=== PATIENT | male | born 1975 | race Caucasian/White ===

== ENCOUNTER 2019-11-18 09:21 | Emergency (ER) | payer SELFPAY ==
[2019-11-18 09:52] VITALS: BP 206/124; PULSE 98; RESP 18; TEMP 36.3; O2SAT 95; BMI 47.0
--- NOTE | 2019-11-18 10:12 | ECG_ITS ---
Measurements Intervals [place] Rate: 102 P: 62 OR: 142 QRS: 14 QRSD: 105 T: 58 QT: 330 QTc: 431 SINUS TACHYCARDIA ABNORMAL RHYTHM ECG Compared to ECG 11/19/2018 06:12:24 Intraventricular conduction delay no longer present Electronically Signed On 11-18-2019 19:23:11 CDT by Joe Steward M.D. [email or web address]
--- NOTE | 2019-11-18 10:13 | XRR_ITS ---
PROCEDURE INFORMATION: Exam: XR Chest, 1 View Exam date and time: 11/18/2019 10:28 AM Age: 44 years old Clinical indication: Cough and dyspnea; Additional info: Dyspnea/cough TECHNIQUE: Imaging protocol: XR of the chest Views: 1 view. COMPARISON: CR Chest 1 [place] [id number] 11/19/2018 6:31 AM FINDINGS: Lungs: Mild platelike atelectasis versus scarring left costophrenic angle. Lungs are otherwise well aerated. Pleural space: Unremarkable. No pleural effusion. No pneumothorax. Heart/Mediastinum: Unremarkable. No cardiomegaly. Bones/joints: Unremarkable. XR/XR chest 1V portable [id number] IMPRESSION: Mild platelike atelectasis versus scarring left costophrenic angle. Lungs are otherwise well aerated.
[2019-11-18 10:25] LABS: Basophils % 0.4 %; Eosinophils # 0.1 10^3/uL (0.0-0.8); Hematocrit 46.1 % (42.0-52.0); Hemoglobin 15.3 g/dL (11.7-16.6); Lymphocytes # 2.4 10^3/uL (0.8-4.8); Lymphocytes % 24.8 %; Mean Corpuscular HGB Conc 33.2 g/dL (30.0-36.0); Mean Corpuscular Hemoglobin 30.5 pg (28.0-34.0); Mean Platelet Volume 10.8 fL (7.4-10.4); Monocytes # 0.7 10^3/uL (0.2-0.9); Monocytes % 7.4 %; Neutrophils # 6.3 10^3/uL (1.8-7.7); Neutrophils % 66.1 %; Nucleated Red Blood Cells % 0 %; Platelet Count 221 10^3/cmm (130-400); Red Blood Count 5.01 10^6/uL (4.1-5.3); Red Cell Distribution Width 12.2 % (12.1-15.1); White Blood Count 9.5 10^3/uL (4.0-10.0)
[2019-11-18 10:39] LABS: Alanine Aminotransferase 41 U/L (0-41); Albumin Level 4.1 g/dL (3.5-5.2); Alkaline Phosphatase 93 IU/L (40-130); Anion Gap 11.1 (5-19); Aspartate Amino Transferase 32 U/L (0-40); Blood Urea Nitrogen 11 mg/dL (6-20); Calcium 9.7 mg/dL (8.5-10.5); Carbon Dioxide 32 mmol/L (22-29); Chloride 100 mmol/L (98-107); Globulin 3.6 g/dL (1.3-4.6); Glomerular Filtration Rate 80.4 mL/min (90-130); Glucose 321 mg/dL (65-115); Osmolality Calculated 296 mOsm/kg (285-295); Potassium 4.1 mmol/L (3.5-5.1); Sodium 139 mmol/L (136-145); Total Bilirubin 0.7 mg/dL (0.15-1.2); Total Protein 7.7 g/dL (6.6-8.7)
[2019-11-18 10:44] LABS: ABG PCO2 40.6 mmHg (35-45); ABG PH Result 7.43 (7.35-7.45); Alveolar-Arterial Oxygen Gradi 30.3 mmHg (5-10); Arterial Blood Gas Hematocrit 48.8 % (42-52); Base Excess ABG 2.7 mmol/L (-2.0-2.0); Blood Gas Allen Test Pos; Blood Gas Sample Site Radial, left; Blood Gas Sample Type Arterial; Carboxyhemoglobin 0.8 %THgb (0.4-20.1); HCO3 ABG 27.2 mmol/L (22-26); HGB O2 Sat 94.5 % (95-100); Ionized Calcium Level - ABG 1.2 mmol/L (1.1-1.4); Methemoglobin 0.1 % (0.4-1.5); Oxygen Device ROOM AIR; Oxygen Saturation ABG 95.3; PO2 ABG 68.9 mmHg (80.0-100.0); Potassium Level - ABG 3.9 mmol/L (3.5-5.0); Total Hemoglobin 15.9 g/dL (14-18)
--- NOTE | 2019-11-18 10:49 | ED_ITS ---
Entered by Tiffani Torres, acting as scribe for Ulises Burnham DO HPI - Extremity Problem General: Chief complaint: Extremity Problem,Nontraumatic Stated complaint: poss blood clots Time Seen by Provider: 11/18/19 09:52 Source: patient and family Mode of arrival: ambulatory Limitations: no limitations History of Present Illness: HPI Narrative: 44 yo male presents with L leg pain and swelling. pt states this started over the last few days. pt was seen by pcp, sent to ED for possible blood clot. pt has had a cough. pt denies any other symptoms at this time. MD Complaint: extremity pain and extremity swelling Onset (ago): day(s) Pain Consistency: constant Location: left Quality: sharp and constant Radiation: none Relieving factors: nothing Exacerbating factors: walking Associated symptoms: Reports no associated symptoms; Deny chest pain, fever(s) or rash Review of Systems General: Reports: 10 or more systems reviewed and unremarkable except in HPI and below Const: Denies: fever, chills, body aches, change in appetite, fatigue or malaise ENMT: Denies: throat pain, ear pain, nasal discharge or nasal congestion Card: Denies: chest pain, edema, shortness of breath on exertion or shortness of breath when lying down Resp: Denies: shortness of breath, productive cough or non-productive cough GI: Denies: abdominal pain, nausea, vomiting, vomiting blood, coffee grounds in vomit, diarrhea, constipation, bloating, blood in stool or black tarry stool : Denies: flank pain, painful urination, urinary frequency or urinary urgency Skin/Breast: Denies: rash or itching [facility] ED PFSH: Social History Smoking and tobacco status: never smoked Physical Exam Const: COMMON NORMALS: no apparent distress GENERAL APPEARANCE: cooperative and comfortable ORIENTATION/CONSCIOUSNESS: Yes awake, Yes oriented to person, Yes oriented to place and Yes oriented to time HENMT: COMMON NORMALS: normocephalic, head/scalp atraumatic, hearing grossly normal bilaterally, external ears normal, EAC's normal, TM's normal bilaterally, nasal mucous membranes and turbinates normal, moist oral mucous membranes and oropharynx normal HEAD & SCALP: normocephalic and atraumatic NOSE: nasal mucous membranes and turbinates normal EXTERNAL EAR: Yes external ears normal EXTERNAL AUDITORY CANAL: EAC's normal TYMPANIC MEMBRANE: TM's normal bilaterally Eye: COMMON NORMALS: PERRL, EOMs intact bilaterally, conjunctivae normal and no scleral icterus CONJUNCTIVA: Yes conjunctivae normal PUPIL: Yes PERRL Neck/C-Spine: COMMON NORMALS: full ROM, no lymphadenopathy, supple and no JVD Lymph: LYMPHATIC: no lymphadenopathy noted and no lymphedema noted Resp: COMMON NORMALS: normal respiratory effort, no retractions, no use of accessory muscles and clear to auscultation bilaterally AUSCULTATION: clear to auscultation bilaterally Cardio: COMMON NORMALS: no JVD, regular rate, regular rhythm and no murmurs RATE: regular rate RHYTHM: regular rhythm GI: COMMON NORMALS: soft to palpation and no hepatosplenomegaly AUSCULTATION: Yes normoactive bowel sounds PALPATION: Yes soft, No tender, No guarding and Yes no hepatosplenomegaly Extremity: LEFT LOWER EXTREMITY: Yes lower leg (Left lower leg swelling) Left lower leg: Yes special tests Left lower leg special tests: Rita's sign: Positive Neuro: SENSORIUM/ORIENTATION: Yes oriented to person, Yes oriented to place and Yes oriented to time Skin: COMMON NORMALS: no rashes or lesions noted GENERAL SKIN EXAM: no rashes or lesions noted Course 2 Vital Signs: Vital signs: Vital Signs Temperature 97.4 F L 11/18/19 09:52 Pulse Rate 18 L 11/18/19 13:12 Respiratory Rate 105 H 11/18/19 13:12 Blood Pressure 184/104 11/18/19 13:12 Pulse Oximetry 97 11/18/19 13:12 MDM - Extremity (Nontraumatic) MDM Narrative: Medical decision making narrative: Patient has a left leg DVT which is quite extensive as well as a multiple small pulmonary emboli. Given Lovenox we will start him on Eliquis follow-up with his primary care doctor advised he will need to continue on the Eliquis until he specifically taken off of it by his primary doctor. Lab Data: Labs: Lab Results 11/18/19 11/18/19 11/18/19 Range/Units 10:20 10:20 10:31 WBC 9.5 (4.0-10.0) 10^3/ uL RBC 5.01 (4.1-5.3) 10^6/u L Hgb 15.3 (11.7-16.6) g/dL Hct 46.1 (42.0-52.0) % MCV 92.0 (80-94) fL MCH 30.5 (28.0-34.0) pg MCHC 33.2 (30.0-36.0) g/dL RDW 12.2 (12.1-15.1) % Plt Count 221 (130-400) 10^3/c mm MPV 10.8 H (7.4-10.4) fL Neut % (Auto) 66.1 % Lymph % (Auto) 24.8 % Howell % (Auto) 7.4 % Eos % (Auto) 1.0 % Baso % (Auto) 0.4 % Neut # (Auto) 6.3 (1.8-7.7) 10^3/u L Lymph # (Auto) 2.4 (0.8-4.8) 10^3/u L Howell # (Auto) 0.7 (0.2-0.9) 10^3/u L Eos # (Auto) 0.1 (0.0-0.8) 10^3/u L Baso # (Auto) 0.0 (0.0-0.1) 10^3/u L Nucleated RBC % (a uto) 0 % Nucleated RBCs # 0.0 /100WBC Specimen Type Arterial Sample Site Radial, left ABG pH 7.43 (7.35-7.45) ABG pCO2 40.6 (35-45) mmHg ABG pO2 68.9 L (80.0-100.0) mmH g ABG HCO3 27.2 H (22-26) mmol/L ABG O2 Saturation 95.3 ABG Base Excess 2.7 H (-2.0-2.0) mmol/ L Patel Test Pos A-a O2 Gradient 30.3 H (5-10) mmHg Hematocrit 48.8 (42-52) % Hgb O2 Saturation 94.5 L (95-100) % Carboxyhemoglobin 0.8 (0.4-20.1) %THgb Methemoglobin 0.1 L (0.4-1.5) % Total Hemoglobin 15.9 (14-18) g/dL Ionized Calcium 1.2 (1.1-1.4) mmol/L O2 Delivery Device Room air Case Mgr ID monro Sodium 139 142.0 (136-145) mmol/L Potassium 4.1 3.9 (3.5-5.1) mmol/L Chloride 100 (98-107) mmol/L Carbon Dioxide 32 H (22-29) mmol/L Anion Gap 11.1 (5-19) BUN 11 (6-20) mg/dL Creatinine 1.0 (0.7-1.2) mg/dL GFR Calculation 80.4 L (90-130) mL/min Glucose 321 H 280.0 H (65-115) mg/dL Calculated Osmolal ity 296 H (285-295) mOsm/k g Calcium 9.7 (8.5-10.5) mg/dL Total Bilirubin 0.7 (0.15-1.2) mg/dL AST 32 (0-40) U/L ALT 41 (0-41) U/L Alkaline Phosphata se 93 (40-130) IU/L Total Protein 7.7 (6.6-8.7) g/dL Albumin 4.1 (3.5-5.2) g/dL Globulin 3.6 (1.3-4.6) g/dL Imaging Data^: CTA Chest: Radiologist's impression: [place] [address] CT Scan Report Signed Patient: Robbie Lanier #: [id number] : 1975Acct#:[id number] Age/Sex: 44 / MADM Date: 11/18/19 Loc: [facility]/Bed: Attending Dr: Ordering Provider/Ordering MD: Ulises Burnham DO Date of Service: 11/18/19 Procedure(s): CT angio chest PE protcl [id number] Accession Number(s): [id number] Report Number: [id number] WS: [id number] CTA OF THE CHEST WITH PULMONARY EMBOLISM PROTOCOL TECHNIQUE: High-resolution contrast enhanced CTA of the chest with coronal and sagittal reformatted images with pulmonary embolism protocol. MIP images are also reviewed. CLINICAL INFORMATION: DVT COMPARISON: None. DLP: 1014.[address] scans at [facility] use at least one of these dose o ptimization techniques: automated exposure control; mA and/or kV adjustment per patient size (includes targeted exams where dose is matched to clinical indication); or iterative reconstruction. FINDINGS: Proximal main pulmonary arteries are normal. Multiple small filling defects in the right upper lobe and right lower lobe segmental and subsegmental pulmonary arteries consistent with acute pulmonary embolus. Proximal main pulmonary arteries are patent. A few additional filling defects in the left lower lobe segmental and subsegmental pulmonary arteries. Normal caliber thoracic aorta. Normal descending thoracic aorta. No acute pulmonary infiltrates. Calcified granuloma left lower lobe. Bilateral thyroid nodules larger on the right measuring 2.7 CM. This can be followed up with ultrasound on an elective basis. Enlarged right hilar lymph nodes measuring up to 2.0 cm. This is nonspecific. A few prominent anterior mediastinal lymph nodes not pathologically enlarged and may be reactive. Adrenal glands are normal. Small esophageal hiatal hernia. Mild thoracic curve. Hypertrophic changes lower thoracic spine. Thoracic curve convex right. Notified Ulises Burnham DO at 11/18/2019 12:[address]/CT angio chest PE protcl [id number] IMPRESSION: 1. Acute pulmonary embolus with filling defects involving the right upper and right lower lobe segmental and subsegmental pulmonary arteries. Additional filling defects involving the left lower lobe consistent pulmonary embolus. 2. No acute pulmonary infiltrates. 3. Enlarged right hilar lymph nodes measuring up to 2.0 cm may be inflammatory but nonspecific 4. Bilateral thyroid nodules. This can be followed up with ultrasound on an elective basis. Dictated By:Oswaldo Paulino MD Signed By:Oswaldo Paulino MDSigned Date/Time:11/18/19 1238 CXR: Radiologist's impression: [address] [address] XRay Report Signed Patient: Robbie Lanier #: [id number] : 1975Acct#:[id number] Age/Sex: 44 / MADM Date: 11/18/19 Loc: [facility]/Bed: Attending Dr: Ordering Provider/Ordering MD: Ulises Burnham DO Date of Service: 11/18/19 Procedure(s): XR chest 1V portable [id number] Accession Number(s): [id number] Report Number: [id number] PROCEDURE INFORMATION: Exam: XR Chest, 1 View Exam date and time: 11/18/2019 10:28 AM Age: 44 years old Clinical indication: Cough and dyspnea; Additional info: Dyspnea/cough TECHNIQUE: Imaging protocol: XR of the chest Views: 1 view. COMPARISON: CR Chest 1 [place] [id number] 11/19/2018 6:31 AM FINDINGS: Lungs: Mild platelike atelectasis versus scarring left costophrenic angle. Lungs are otherwise well aerated. Pleural space: Unremarkable. No pleural effusion. No pneumothorax. Heart/Mediastinum: Unremarkable. No cardiomegaly. Bones/joints: Unremarkable. XR/XR chest 1V portable [id number] IMPRESSION: Mild platelike atelectasis versus scarring left costophrenic angle. Lungs are otherwise well aerated. Dictated By:Stephen Arshad MD Signed By:Stephen Arshadigned Date/Time:11/18/19 1100 Discharge Plan Discharge Patient Disposition: Home, Self-Care Clinical Impression: Deep vein thrombosis of lower extremity, Pulmonary embolism Condition: Stable Prescriptions: New Eliquis DVT-PE Treat 30D Start 5 mg (74 tabs) tablets,dose pack See Rx Instructions .ROUTE .COMPLEX Qty: 74 RF: 0 Discharge Orders: Discharge Order (Routine); Ordered 11/18/19 Ordered By: Ulises Burnham Other Ambulatory Orders: DME: Oxygen (Order) Location: None Selected Ordered By: Ulises Burnham Discharge Diet: Usual diet Discharge Activity: Resume usual activity Patient Instructions: Deep Venous Thrombosis (ED), Pulmonary Embolism Discharge Date/Time: 11/18/19 13:13 Coding Level of Care Code ED [employer] for Chg Fwd Exam Comprehensive The documentation recorded by the Brian horan Bridget Annette, accurately reflects the service I personally performed and the decisions made by [place] Curtis L, DO Nov 18, 2019 09:21
--- NOTE | 2019-11-18 11:25 | USCV_ITS ---
Ryan Lanier Age: 44 Gender: M : 1975 Exam Date: 11/18/2019 11:44 Ordering Phys: Ulises Burnham DO Technologist: Jessie Herrera Exam Location: [facility] Indication: LLE pain/swelling, positive Homans HISTORY: LLE pain, swelling X 3 weeks PROCEDURES: On the left side, the common femoral, superficial femoral, profunda femoral, popliteal, posterior tibial, greater saphenous veins, and the peroneal trunk were identified and interrogated in the standard fashion. FINDINGS: Thrombus is seen in left CFV, FV, Profunda, popliteal and peroneal veins. Minimal flow seen in left CFV. No flow found in Profunda, FV, popliteal and peroneal veins. Left GSV upper and lower and PTV appear to be free of thrombus. Right CFV, Profunda and GSV were also evaluated and appear to be free of thrombus. CONCLUSIONS DVT left CFV, FV, Profunda, popliteal and peroneal veins. Minimal flow left CFV. No flow Profunda, Femoral vein , popliteal and peroneal veins. Left GSV is patent Prelim to Dr Burnham at time of exam Oswaldo Paulino MD (Electronically Signed) Final Date: 18 November 2019 17:12 S
--- NOTE | 2019-11-18 12:00 | CT_ITS ---
WS: [id number] CTA OF THE CHEST WITH PULMONARY EMBOLISM PROTOCOL TECHNIQUE: High-resolution contrast enhanced CTA of the chest with coronal and sagittal reformatted i mages with pulmonary embolism protocol. MIP images are also reviewed. CLINICAL INFORMATION: DVT COMPARISON: None. DLP: 1014.[address] scans at [facility] use at least one of these dose optimization techniques: automat ed exposure control; mA and/or kV adjustment per patient size (includes targeted exams where dose is matched to clinical indication); or iterative reconstruction. FINDINGS: Proximal main pulmonary arteries are normal. Multiple small filling defects in the right upper lobe a nd right lower lobe segmental and subsegmental pulmonary arteries consistent with acute pulmonary emb olus. Proximal main pulmonary arteries are patent. A few additional filling defects in the left lower lobe segmental and subsegmental pulmonary arteries. Normal caliber thoracic aorta. Normal descending thoracic aorta. No acute pulmonary infiltrates. Calc ified granuloma left lower lobe. Bilateral thyroid nodules larger on the right measuring 2.7 CM. This can be followed up with ultrasound on an elective basis. Enlarged right hilar lymph nodes measuring up to 2.0 cm. This is nonspecific. A few prominent anterior mediastinal lymph nodes not pathologicall y enlarged and may be reactive. Adrenal glands are normal. Small esophageal hiatal hernia. Mild thoracic curve. Hypertrophic changes lower thoracic spine. Thoracic curve convex right. Notified Ulises Burnham DO at 11/18/2019 12:[address]/CT angio chest PE protcl [id number] IMPRESSION: 1. Acute pulmonary embolus with filling defects involving the right upper and right lower lobe segmental and subsegmental pulmonary arteries. Additional fill ing defects involving the left lower lobe consistent pulmonary embolus. 2. No acute pulmonary infiltrates. 3. Enlarged right hilar lymph nodes measuring up to 2.0 cm may be inflammatory but nonspecific 4. Bilateral thyroid nodules. This can be followed up with ultrasound on an el ective basis.
[2019-11-18] MEDS: iohexol 350 mg/mL 100 mL Btl IV (12:22)
[2019-11-18] MEDS: enoxaparin 120 mg/0.8 mL Syringe SUBCUT (12:49)
[2019-11-18 13:12] VITALS: BP 184/104; PULSE 18; RESP 105; O2SAT 97
== END 2019-11-18 13:13 | disposition home or self-care (01) ==
PROVIDERS: Emergency Provider Family Medicine; Family Provider Electrodiagnostic Medicine; PCP Electrodiagnostic Medicine
DX: I82.412 Acute embolism and thrombosis of left femoral vein (principal); I82.432 Acute embolism and thrombosis of left popliteal vein; I82.452 Acute embolism and thrombosis of left peroneal vein; I26.99 Other pulmonary embolism without acute cor pulmonale
CPT/HCPCS: 12345; 36415; 36600; 71045; 71275; 80051; 80053; 82810; 83986; 85025; 93005; 93971; 96372; 99282; 99284; J1650; Q9967

== ENCOUNTER 2019-12-02 17:03 | Emergency (ER) | payer SELFPAY ==
[2019-12-02 17:05] VITALS: BP 165/126; PULSE 111; RESP 18; TEMP 36.6; O2SAT 96; BMI 46.5
--- NOTE | 2019-12-02 17:23 | ED_ITS ---
Documented by User: Ulises Burnham DO 12/04/19 17:39 HPI - Chest Pain General: Chief Complaint: Chest Pain Stated Complaint: cp Time Seen by Provider: 12/02/19 17:23 History of Present Illness: HPI narrative: 44 yo male presents with a complaint of chest discomfort. He recently had a pulmonary emboli approximately 3 weeks ago he still taking his Eliquis. Chest discomfort is been present since that time. He is not had any fever is not had any hemoptysis. There is no radiation of the pain. Associated symptoms: Deny abdominal pain, dyspnea, fever(s), nausea or vomiting Review of Systems Const: Denies: fever, chills, body aches, change in appetite, fatigue or m alaise ENMT: Denies: throat pain, ear pain, nasal discharge or nasal congestion Card: Reports: chest pain and shortness of breath on exertion; Denies: edema or shortness of breath when lying down Resp: Denies: shortness of breath, productive cough or non-productive cough GI: Denies: abdominal pain, nausea, vomiting, vomiting blood, coffee grounds in vomit, diarrhea, constipation, bloating, blood in stool or black tarry stool : Denies: flank pain, painful urination, urinary frequency or urinary urgency Skin/Breast: Denies: rash or itching PFSH ED PFSH: Medical History DVT (deep venous thrombosis) Essential hypertension Pulmonary embolism Type 2 diabetes mellitus, without long-term current use of insulin Surgical History No pertinent past surgical history Family History Other CAD (coronary artery disease) Cancer Social History Smoking and tobacco status: never smoked Alcohol intake: never Physical Exam Extremity: OTHER: Mild persistent edema of the right lower leg Course Vital Signs: Vital signs: Vital Signs Temperature 97.8 F 12/02/19 17:05 Pulse Rate 99 12/02/19 19:05 Respiratory Rate 18 12/02/19 19:05 Blood Pressure 182/96 12/02/19 19:05 Pulse Oximetry 97 12/02/19 19:05 MDM - Chest Pain MDM Narrative: Medical decision making narrative: Troponins pending care turned over to Dr. West at change of shift Lab Data: Labs: Lab Results 12/02/19 12/02/19 Range/Units 17:45 17:45 WBC 11.2 H (4.0-10.0) 10^3/ uL RBC 5.31 H (4.1-5.3) 10^6/u L Hgb 15.6 (11.7-16.6) g/dL Hct 49.3 (42.0-52.0) % MCV 92.8 (80-94) fL MCH 29.4 (28.0-34.0) pg MCHC 31.6 (30.0-36.0) g/dL RDW 11.9 L (12.1-15.1) % Plt Count 360 (130-400) 10^3/c mm MPV 11.2 H (7.4-10.4) fL Neut % (Auto) 56.6 % Lymph % (Auto) 36.0 % [place] % (Auto) 5.6 % Eos % (Auto) 0.8 % Baso % (Auto) 0.5 % Neut # (Auto) 6.3 (1.8-7.7) 10^3/u L Lymph # (Auto) 4.0 (0.8-4.8) 10^3/u L [place] # (Auto) 0.6 (0.2-0.9) 10^3/u L Eos # (Auto) 0.1 (0.0-0.8) 10^3/u L Baso # (Auto) 0.1 (0.0-0.1) 10^3/u L Nucleated RBC % (a uto) 0 % Nucleated RBCs # 0.0 /100WBC Sodium 141 (136-145) mmol/L Potassium 4.0 (3.5-5.1) mmol/L Chloride 99 (98-107) mmol/L Carbon Dioxide 27 (22-29) mmol/L Anion Gap 19.0 (5-19) BUN 17 (6-20) mg/dL Creatinine 1.3 H (0.7-1.2) mg/dL GFR Calculation 59.4 L (90-130) mL/min Glucose 229 H (65-115) mg/dL Calculated Osmolal ity 296 H (285-295) mOsm/k g Calcium 10.1 (8.5-10.5) mg/dL Total Bilirubin 0.5 (0.15-1.2) mg/dL AST 36 (0-40) U/L ALT 42 H (0-41) U/L Alkaline Phosphata se 101 (40-130) IU/L Total Protein 8.2 (6.6-8.7) g/dL Albumin 4.3 (3.5-5.2) g/dL Globulin 3.9 (1.3-4.6) g/dL Discharge Plan Discharge Patient Disposition: Home, Self-Care Clinical Impression: Chest pain Qualifiers: Chest pain type: other chest pain Qualified Code(s): R07.89 - Other chest pain Pulmonary emboli Qualifiers: Pulmonary embolism type: unspecified Chronicity: chronic Acute cor pulmonale presence: unspecified Qualified Code(s): I27.82 - Chronic pulmonary embolism Condition: Stable Prescriptions: No Action losartan 50 mg tablet 50 mg PO DAILY RF: 0 metoprolol tartrate 50 mg tablet 50 mg PO BID RF: 0 amlodipine 10 mg tablet 10 mg PO DAILY RF: 0 Eliquis 5 mg tablet 5 mg PO BID Qty: 60 RF: 0 hydrocodone-acetaminophen 5-325 mg tablet 1 tab PO Q6H PRN (Reason: Pain) RF: 0 glipizide 10 mg tablet extended release 24hr 10 mg PO DAILY RF: 0 Tylenol Extra Strength 500 mg Tablet 1,000 mg PO PRN RF: 0 Discharge Orders: Discharge Order (Routine); Ordered 12/02/19 Ordered By: Porter West Referrals: Jose Barahona DO [Primary Care Provider] - 4-7 days Discharge Diet: Advance as tolerated Discharge Activity: Resume usual activity Patient Instructions: Chest Pain (ED) Discharge Date/Time: 12/02/19 19:05 Coding Level of Care Code ED Web Site Administrator for Danielg Fwd Exam Comprehensive Documented by User: Porter West MD 12/02/19 18:25 HPI - Chest Pain General: Chief Complaint: Chest Pain Stated Complaint: cp Time Seen by Provider: 12/02/19 17:23 PFSH ED PFSH: Medical History DVT (deep venous thrombosis) Essential hypertension Pulmonary embolism Type 2 diabetes mellitus, without long-term current use of insulin Surgical History No pertinent past surgical history Family History Other CAD (coronary artery disease) Cancer Social History Smoking and tobacco status: never smoked Alcohol intake: never Physical Exam Const: COMMON NORMALS: no apparent distress, oriented x3 and healthy appearing HENMT: COMMON NORMALS: normocephalic and head/scalp atraumatic HEAD & SCALP: normocephalic and atraumatic Eye: COMMON NORMALS: PERRL and EOMs intact bilaterally PUPIL: Yes PERRL Neck/C-Spine: COMMON NORMALS: full ROM and supple Chest: COMMONS NORMALS: inspection of chest normal and palpation of chest normal Resp: COMMON NORMALS: normal respiratory effort, no retractions, no use of accessory muscles and clear to auscultation bilaterally AUSCULTATION: clear to auscultation bilaterally Cardio: COMMON NORMALS: regular rate, regular rhythm and no murmurs RATE: regular rate RHYTHM: regular rhythm GI: COMMON NORMALS: normal to inspection, nondistended, normoactive bowel sounds, soft to palpation, non-tender and no masses PALPATION: Yes soft Extremity: COMMON NORMALS: normal to inspection and full ROM Neuro: COMMON NORMALS: oriented x3, moves all extremities and no focal motor deficits Psych: COMMON NORMALS: mental status grossly normal, thought process normal and cooperative THOUGHT PROCESS: normal thought process Skin: COMMON NORMALS: no rashes or lesions noted and no wounds GENERAL SKIN EXAM: no rashes or lesions noted Course Vital Signs: Vital signs: Vital Signs Temperature 97.8 F 04/06/20 17:05 Pulse Rate 99 12/02/19 19:05 Respiratory Rate 18 12/02/19 19:05 Blood Pressure 182/96 12/02/19 19:05 Pulse Oximetry 97 12/02/19 19:05 MDM - Chest Pain MDM Narrative: Medical decision making narrative: Patient presents here with chest pain likely from his pulmonary embolism. Patient's EKG I reviewed here with Dr. Burnham who originally seen and I took patient care over from him and it is negative. Patient's lab work here is negative. Patient's pain is improved. I spoke to patient I feel he is stable for discharge and he is to continue to take his blood thinners and follow-up with primary care doctor in 3 to 5 days. Patient understands and agrees to plan. Lab Data: Labs: Lab Results 12/02/19 12/02/19 Range/Units 17:45 17:45 WBC 11.2 H (4.0-10.0) 10^3/ uL RBC 5.31 H (4.1-5.3) 10^6/u L Hgb 15.6 (11.7-16.6) g/dL Hct 49.3 (42.0-52.0) % MCV 92.8 (80-94) fL MCH 29.4 (28.0-34.0) pg MCHC 31.6 (30.0-36.0) g/dL RDW 11.9 L (12.1-15.1) % Plt Count 360 (130-400) 10^3/c mm MPV 11.2 H (7.4-10.4) fL Neut % (Auto) 56.6 % Lymph % (Auto) 36.0 % [place] % (Auto) 5.6 % Eos % (Auto) 0.8 % Baso % (Auto) 0.5 % Neut # (Auto) 6.3 (1.8-7.7) 10^3/u L Lymph # (Auto) 4.0 (0.8-4.8) 10^3/u L [place] # (Auto) 0.6 (0.2-0.9) 10^3/u L Eos # (Auto) 0.1 (0.0-0.8) 10^3/u L Baso # (Auto) 0.1 (0.0-0.1) 10^3/u L Nucleated RBC % (a uto) 0 % Nucleated RBCs # 0.0 /100WBC Sodium 141 (136-145) mmol/L Potassium 4.0 (3.5-5.1) mmol/L Chloride 99 (98-107) mmol/L Carbon Dioxide 27 (22-29) mmol/L Anion Gap 19.0 (5-19) BUN 17 (6-20) mg/dL Creatinine 1.3 H (0.7-1.2) mg/dL GFR Calculation 59.4 L (90-130) mL/min Glucose 229 H (65-115) mg/dL Calculated Osmolal ity 296 H (285-295) mOsm/k g Calcium 10.1 (8.5-10.5) mg/dL Total Bilirubin 0.5 (0.15-1.2) mg/dL AST 36 (0-40) U/L ALT 42 H (0-41) U/L Alkaline Phosphata se 101 (40-130) IU/L Total Protein 8.2 (6.6-8.7) g/dL Albumin 4.3 (3.5-5.2) g/dL Globulin 3.9 (1.3-4.6) g/dL Imaging Data^: CXR: Attestation: I personally reviewed and interpreted this imaging study as follows: My impression: no acute abnormality Discharge Plan Discharge Patient Disposition: Home, Self-Care Clinical Impression: Chest pain Qualifiers: Chest pain type: other chest pain Qualified Code(s): R07.89 - Other chest pain Pulmonary emboli Qualifiers: Pulmonary embolism type: unspecified Chronicity: chronic Acute cor pulmonale presence: unspecified Qualified Code(s): I27.82 - Chronic pulmonary embolism Condition: Stable Prescriptions: No Action losartan 50 mg tablet 50 mg PO DAILY RF: 0 metoprolol tartrate 50 mg tablet 50 mg PO BID RF: 0 amlodipine 10 mg tablet 10 mg PO DAILY RF: 0 Eliquis 5 mg tablet 5 mg PO BID Qty: 60 RF: 0 hydrocodone-acetaminophen 5-325 mg tablet 1 tab PO Q6H PRN (Reason: Pain) RF: 0 glipizide 10 mg tablet extended release 24hr 10 mg PO DAILY RF: 0 Tylenol Extra Strength 500 mg Tablet 1,000 mg PO PRN RF: 0 Discharge Orders: Discharge Order (Routine); Ordered 12/02/19 Ordered By: Porter West Referrals: Jose Barahona, [Primary Care Provider] - 4-7 days Discharge Diet: Advance as tolerated Discharge Activity: Resume usual activity Patient Instructions: Chest Pain (ED) Discharge Date/Time: 12/02/19 19:05 Coding Level of Care Code ED Web Site Administrator for Danielg Fwd Exam Comprehensive
--- NOTE | 2019-12-02 17:30 | ECG_ITS ---
Measurements Intervals [place] Rate: 108 P: 57 HI: 135 QRS: 8 QRSD: 106 T: 69 QT: 331 QTc: 445 SINUS TACHYCARDIA ABNORMAL RHYTHM ECG Compared to ECG 11/18/2019 10:58:33 No significant changes Electronically Signed On 12-02-2019 18:35:36 CDT by Todd Vaca M.D. [email or web address]
--- NOTE | 2019-12-02 17:30 | XR_ITS ---
WS: [id number] CHEST XRAY TECHNIQUE: Portable chest. CLINICAL INFORMATION: dyspnea/cough COMPARISON: November 18, 2019 FINDINGS: Heart: Normal cardiac silhouette. Lungs: Lungs are clear. No consolidation or pleural effusion. Bones: Mild thoracic curve convex right. XR/XR chest 1V portable [id number] IMPRESSION: No acute chest findings
[2019-12-02 17:57] LABS: Basophils # 0.1 10^3/uL (0.0-0.1); Basophils % 0.5 %; Eosinophils # 0.1 10^3/uL (0.0-0.8); Eosinophils % 0.8 %; Hematocrit 49.3 % (42.0-52.0); Hemoglobin 15.6 g/dL (11.7-16.6); Mean Corpuscular HGB Conc 31.6 g/dL (30.0-36.0); Mean Corpuscular Hemoglobin 29.4 pg (28.0-34.0); Mean Corpuscular Volume 92.8 fL (80-94); Mean Platelet Volume 11.2 fL (7.4-10.4); Monocytes # 0.6 10^3/uL (0.2-0.9); Monocytes % 5.6 %; Neutrophils # 6.3 10^3/uL (1.8-7.7); Neutrophils % 56.6 %; Nucleated Red Blood Cells % 0 %; Platelet Count 360 10^3/cmm (130-400); Red Blood Count 5.31 10^6/uL (4.1-5.3); Red Cell Distribution Width 11.9 % (12.1-15.1); White Blood Count 11.2 10^3/uL (4.0-10.0)
[2019-12-02 18:16] LABS: Alanine Aminotransferase 42 U/L (0-41); Albumin Level 4.3 g/dL (3.5-5.2); Alkaline Phosphatase 101 IU/L (40-130); Aspartate Amino Transferase 36 U/L (0-40); Blood Urea Nitrogen 17 mg/dL (6-20); Calcium 10.1 mg/dL (8.5-10.5); Carbon Dioxide 27 mmol/L (22-29); Chloride 99 mmol/L (98-107); Globulin 3.9 g/dL (1.3-4.6); Glomerular Filtration Rate 59.4 mL/min (90-130); Glucose 229 mg/dL (65-115); Osmolality Calculated 296 mOsm/kg (285-295); Sodium 141 mmol/L (136-145); Total Bilirubin 0.5 mg/dL (0.15-1.2); Total Protein 8.2 g/dL (6.6-8.7)
[2019-12-02 19:05] VITALS: BP 182/96; PULSE 99; RESP 18; O2SAT 97
== END 2019-12-02 19:05 | disposition home or self-care (01) ==
PROVIDERS: Family Medicine; Emergency Provider Emergency Medicine; Family Provider Electrodiagnostic Medicine; PCP Electrodiagnostic Medicine
DX: I27.82 Chronic pulmonary embolism (principal); R07.89 Other chest pain; R60.9 Edema, unspecified; I10 Essential (primary) hypertension; E11.9 Type 2 diabetes mellitus without complications; Z79.01 Long term (current) use of anticoagulants; Z86.718 Personal history of other venous thrombosis and embolism
CPT/HCPCS: 12345; 36415; 71045; 80053; 85025; 93005; 99281; 99283

== ENCOUNTER → 2021-03-29 12:18 | Outpatient (BNVA) | payer SELFPAY | PROVIDERS: Family Provider Electrodiagnostic Medicine; PCP Electrodiagnostic Medicine; Visit Provider Family Medicine | DX: E66.01 Morbid (severe) obesity due to excess calories (principal); I10 Essential (primary) hypertension; I82.409 Acute embolism and thrombosis of unspecified deep veins of unspecified lower extremity; R60.0 Localized edema; Z68.42 Body mass index [BMI] 45.0-49.9, adult; E11.42 Type 2 diabetes mellitus with diabetic polyneuropathy; C44.519 Basal cell carcinoma of skin of other part of trunk; L98.9 Disorder of the skin and subcutaneous tissue, unspecified | CPT/HCPCS: 80053; 80061; 83036; 83721; 84443; 85025 ==

== ENCOUNTER 2021-04-13 14:38 | Outpatient (CLI) | payer SELFPAY ==
--- NOTE | 2021-04-13 15:00 | USCV_ITS ---
Yannick Ryan Age: 46 Gender: M : 1975 Exam Date: 04/13/2021 15:24 Ordering Phys: Jasiel Trejo DO Technologist: MADI Exam Location: [facility] [place] Indication: KNOWN DVT IN OCTOBER 2020 HISTORY: Known Lt leg DVT PROCEDURES: Comparison:. 11/18/19. Venous duplex imaging was performed in only the left lower extremity. The following venous structures were evaluated: common femoral vein, profunda vein, proximal portion of the greater saphenous vein, superficial femoral vein, and the popliteal vein. In addition, the posterior tibial and peroneal trunk were evaluated. Serial compression, augmentation maneuvers, and spectral Doppler flow evaluation were performed. FINDINGS: Residual DVT Proximal Lt SFV but there is flow. Partial occlusion mid Lt FV but augmented decreased flow Distal lt SFV occlusion. Otherwise no DVT. CONCLUSIONS Moderate residual DVT left lower extremity. Report called to physician. Dr. Shivani Rosa DO (Electronically Signed) Final Date: 13 April 2021 16:13 S
== END 2021-04-13 14:39 | disposition home or self-care (01) ==
LOC: RAD 14:41
PROVIDERS: PCP Family Medicine; Visit Provider Family Medicine
DX: R60.0 Localized edema (principal); Z86.718 Personal history of other venous thrombosis and embolism; I82.402 Acute embolism and thrombosis of unspecified deep veins of left lower extremity
CPT/HCPCS: 93971

== ENCOUNTER → 2021-04-19 10:54 | Outpatient (BNVA) | payer SELFPAY | PROVIDERS: PCP Family Medicine; Visit Provider Family Medicine | DX: I82.412 Acute embolism and thrombosis of left femoral vein (principal); Z79.01 Long term (current) use of anticoagulants | CPT/HCPCS: 85610 ==

== ENCOUNTER → 2021-04-23 09:15 | Outpatient (BNVA) | payer SELFPAY | PROVIDERS: PCP Family Medicine; Visit Provider Family Medicine | DX: I82.402 Acute embolism and thrombosis of unspecified deep veins of left lower extremity (principal); I82.412 Acute embolism and thrombosis of left femoral vein; Z79.01 Long term (current) use of anticoagulants | CPT/HCPCS: 85610 ==

== ENCOUNTER → 2021-04-27 11:36 | Outpatient (BNVA) | payer SELFPAY | PROVIDERS: PCP Family Medicine; Visit Provider Family Medicine | DX: I82.402 Acute embolism and thrombosis of unspecified deep veins of left lower extremity (principal); I10 Essential (primary) hypertension; E11.42 Type 2 diabetes mellitus with diabetic polyneuropathy; Z79.4 Long term (current) use of insulin; Z79.01 Long term (current) use of anticoagulants | CPT/HCPCS: 85610 ==

== ENCOUNTER → 2021-04-29 09:22 | Outpatient (BNVA) | payer SELFPAY | PROVIDERS: PCP Family Medicine; Visit Provider Family Medicine | DX: Z79.01 Long term (current) use of anticoagulants (principal) | CPT/HCPCS: 85610 ==

== ENCOUNTER → 2021-05-04 11:41 | Outpatient (BNVA) | payer SELFPAY | PROVIDERS: PCP Family Medicine; Visit Provider Family Medicine | DX: Z79.01 Long term (current) use of anticoagulants (principal) | CPT/HCPCS: 85610 ==

== ENCOUNTER → 2021-05-06 13:55 | Outpatient (BNVA) | payer SELFPAY | PROVIDERS: PCP Family Medicine; Visit Provider Family Medicine | DX: Z79.01 Long term (current) use of anticoagulants (principal) | CPT/HCPCS: 85610 ==

== ENCOUNTER → 2021-05-13 09:41 | Outpatient (BNVA) | payer SELFPAY | PROVIDERS: PCP Family Medicine; Visit Provider Family Medicine | DX: Z79.01 Long term (current) use of anticoagulants (principal) | CPT/HCPCS: 85610 ==

== ENCOUNTER → 2021-05-20 09:45 | Outpatient (BNVA) | payer SELFPAY | PROVIDERS: PCP Family Medicine; Visit Provider Family Medicine | DX: Z79.01 Long term (current) use of anticoagulants (principal) | CPT/HCPCS: 85610 ==

== ENCOUNTER → 2021-05-27 10:17 | Outpatient (BNVA) | payer SELFPAY | PROVIDERS: PCP Family Medicine; Visit Provider Family Medicine | DX: Z79.01 Long term (current) use of anticoagulants (principal) | CPT/HCPCS: 85610 ==

== ENCOUNTER → 2021-06-10 09:52 | Outpatient (BNVA) | payer SELFPAY | PROVIDERS: PCP Family Medicine; Visit Provider Family Medicine | DX: Z79.01 Long term (current) use of anticoagulants (principal) | CPT/HCPCS: 85610 ==

== ENCOUNTER → 2021-07-19 11:08 | Outpatient (BNVA) | payer SELFPAY | PROVIDERS: PCP Family Medicine; Visit Provider Family Medicine | DX: E11.65 Type 2 diabetes mellitus with hyperglycemia (principal); L03.811 Cellulitis of head [any part, except face]; I82.412 Acute embolism and thrombosis of left femoral vein; E11.42 Type 2 diabetes mellitus with diabetic polyneuropathy; Z79.4 Long term (current) use of insulin; I10 Essential (primary) hypertension | CPT/HCPCS: 80048; 83036 ==

== ENCOUNTER → 2021-07-21 08:18 | Outpatient (BNVA) | payer SELFPAY | PROVIDERS: PCP Family Medicine; Visit Provider Family Medicine | DX: L03.811 Cellulitis of head [any part, except face] (principal); E11.65 Type 2 diabetes mellitus with hyperglycemia; I82.402 Acute embolism and thrombosis of unspecified deep veins of left lower extremity; E11.42 Type 2 diabetes mellitus with diabetic polyneuropathy; Z79.4 Long term (current) use of insulin; I10 Essential (primary) hypertension; I82.409 Acute embolism and thrombosis of unspecified deep veins of unspecified lower extremity; Z79.01 Long term (current) use of anticoagulants; I82.412 Acute embolism and thrombosis of left femoral vein | CPT/HCPCS: 85610 ==

== ENCOUNTER → 2021-11-09 08:20 | Outpatient (BNVA) | payer SELFPAY | PROVIDERS: PCP Family Medicine; Visit Provider Family Medicine | DX: L03.811 Cellulitis of head [any part, except face] (principal); E11.8 Type 2 diabetes mellitus with unspecified complications; E11.65 Type 2 diabetes mellitus with hyperglycemia; I82.412 Acute embolism and thrombosis of left femoral vein; I82.402 Acute embolism and thrombosis of unspecified deep veins of left lower extremity; E11.42 Type 2 diabetes mellitus with diabetic polyneuropathy; Z79.4 Long term (current) use of insulin; I10 Essential (primary) hypertension; I82.409 Acute embolism and thrombosis of unspecified deep veins of unspecified lower extremity; K21.9 Gastro-esophageal reflux disease without esophagitis; Z79.01 Long term (current) use of anticoagulants | CPT/HCPCS: 80048; 83036; 85610 ==

== ENCOUNTER → 2022-02-08 09:04 | Outpatient (BNVA) | payer SELFPAY | PROVIDERS: PCP Family Medicine; Visit Provider Family Medicine | DX: L03.811 Cellulitis of head [any part, except face] (principal); E11.8 Type 2 diabetes mellitus with unspecified complications; E11.65 Type 2 diabetes mellitus with hyperglycemia; I82.412 Acute embolism and thrombosis of left femoral vein; I82.402 Acute embolism and thrombosis of unspecified deep veins of left lower extremity; E11.42 Type 2 diabetes mellitus with diabetic polyneuropathy; Z79.4 Long term (current) use of insulin; I10 Essential (primary) hypertension; I82.409 Acute embolism and thrombosis of unspecified deep veins of unspecified lower extremity; K21.9 Gastro-esophageal reflux disease without esophagitis; Z79.01 Long term (current) use of anticoagulants; I82.532 Chronic embolism and thrombosis of left popliteal vein | CPT/HCPCS: 80048; 80061; 82043; 83036; 84153; 85610 ==

== ENCOUNTER → 2022-02-24 09:26 | Outpatient (BNVA) | payer SELFPAY | PROVIDERS: PCP Family Medicine; Visit Provider Family Medicine | DX: I82.409 Acute embolism and thrombosis of unspecified deep veins of unspecified lower extremity (principal) | CPT/HCPCS: 85610 ==

== ENCOUNTER → 2022-06-09 09:24 | Outpatient (BNVA) | payer SELFPAY | PROVIDERS: PCP Family Medicine; Visit Provider Family Medicine | DX: I82.412 Acute embolism and thrombosis of left femoral vein (principal); I82.402 Acute embolism and thrombosis of unspecified deep veins of left lower extremity; I82.532 Chronic embolism and thrombosis of left popliteal vein; Z79.01 Long term (current) use of anticoagulants; E11.42 Type 2 diabetes mellitus with diabetic polyneuropathy; I10 Essential (primary) hypertension; E66.01 Morbid (severe) obesity due to excess calories; Z68.42 Body mass index [BMI] 45.0-49.9, adult | CPT/HCPCS: 85610 ==

== ENCOUNTER → 2022-09-14 09:36 | Outpatient (BNVA) | payer BC, MEDICAID, SELFPAY | PROVIDERS: PCP Family Medicine; Visit Provider Family Medicine | DX: M10.9 Gout, unspecified (principal); Z79.01 Long term (current) use of anticoagulants; I82.412 Acute embolism and thrombosis of left femoral vein; I82.402 Acute embolism and thrombosis of unspecified deep veins of left lower extremity; E11.8 Type 2 diabetes mellitus with unspecified complications; E11.65 Type 2 diabetes mellitus with hyperglycemia; I10 Essential (primary) hypertension | CPT/HCPCS: 80053; 83036; 85610 ==

== ENCOUNTER → 2022-12-07 10:52 | Outpatient (BNVA) | payer BC, MEDICAID, SELFPAY | PROVIDERS: PCP Family Medicine; Visit Provider Family Medicine | DX: Z79.01 Long term (current) use of anticoagulants (principal) | CPT/HCPCS: 85610 ==

== ENCOUNTER → 2023-01-06 13:12 | Outpatient (BNVA) | payer BC, MEDICAID, SELFPAY | PROVIDERS: PCP Family Medicine; Visit Provider Family Medicine | DX: Z79.01 Long term (current) use of anticoagulants (principal) | CPT/HCPCS: 85610 ==

== ENCOUNTER → 2023-03-22 10:51 | Outpatient (BNVA) | payer BC, MEDICAID, SELFPAY | PROVIDERS: PCP Family Medicine; Visit Provider Family Medicine | DX: K21.9 Gastro-esophageal reflux disease without esophagitis (principal); I82.412 Acute embolism and thrombosis of left femoral vein; I82.402 Acute embolism and thrombosis of unspecified deep veins of left lower extremity; E11.65 Type 2 diabetes mellitus with hyperglycemia; E11.8 Type 2 diabetes mellitus with unspecified complications; E11.9 Type 2 diabetes mellitus without complications; E66.09 Other obesity due to excess calories; I10 Essential (primary) hypertension; Z79.01 Long term (current) use of anticoagulants; E83.42 Hypomagnesemia; I82.409 Acute embolism and thrombosis of unspecified deep veins of unspecified lower extremity | CPT/HCPCS: 80053; 80061; 83036; 83721; 83735; 85025; 85610 ==

== ENCOUNTER → 2023-06-06 09:49 | Outpatient (BNVA) | payer BC, MEDICAID, SELFPAY | PROVIDERS: PCP Family Medicine; Visit Provider Family Medicine | DX: E11.65 Type 2 diabetes mellitus with hyperglycemia (principal); I82.402 Acute embolism and thrombosis of unspecified deep veins of left lower extremity; Z79.01 Long term (current) use of anticoagulants; I82.412 Acute embolism and thrombosis of left femoral vein; I10 Essential (primary) hypertension | CPT/HCPCS: 83036; 85610 ==

== ENCOUNTER → 2023-10-18 10:26 | Outpatient (BNVA) | payer BC, MEDICAID, SELFPAY | PROVIDERS: PCP Family Medicine; Visit Provider Family Medicine | DX: I10 Essential (primary) hypertension (principal); K21.9 Gastro-esophageal reflux disease without esophagitis; E11.8 Type 2 diabetes mellitus with unspecified complications; E11.65 Type 2 diabetes mellitus with hyperglycemia; Z79.01 Long term (current) use of anticoagulants; I82.532 Chronic embolism and thrombosis of left popliteal vein; I82.512 Chronic embolism and thrombosis of left femoral vein | CPT/HCPCS: 80053; 80061; 83036; 85610 ==

== ENCOUNTER → 2024-02-19 15:51 | Outpatient (BNVA) | payer BC, MEDICAID, SELFPAY | PROVIDERS: PCP Family Medicine; Visit Provider Family Medicine | DX: I48.91 Unspecified atrial fibrillation (principal); Z79.01 Long term (current) use of anticoagulants; E11.42 Type 2 diabetes mellitus with diabetic polyneuropathy; R79.89 Other specified abnormal findings of blood chemistry; E11.8 Type 2 diabetes mellitus with unspecified complications; E11.65 Type 2 diabetes mellitus with hyperglycemia; E55.9 Vitamin D deficiency, unspecified; Z12.5 Encounter for screening for malignant neoplasm of prostate; I10 Essential (primary) hypertension; J34.0 Abscess, furuncle and carbuncle of nose; K21.9 Gastro-esophageal reflux disease without esophagitis; I82.412 Acute embolism and thrombosis of left femoral vein; I82.402 Acute embolism and thrombosis of unspecified deep veins of left lower extremity | CPT/HCPCS: 80053; 80061; 82306; 82607; 83036; 83721; 84443; 85025; 85610; G0103 ==

== ENCOUNTER → 2024-07-18 10:31 | Outpatient (BNVA) | payer BC, MEDICAID, SELFPAY | PROVIDERS: PCP Family Medicine; Visit Provider Family Medicine | DX: I82.402 Acute embolism and thrombosis of unspecified deep veins of left lower extremity (principal); E11.42 Type 2 diabetes mellitus with diabetic polyneuropathy | CPT/HCPCS: 80053; 80061; 83036; 85025; 85610 ==

== ENCOUNTER → 2024-10-18 10:31 | Outpatient (BNVA) | payer BC, MEDICAID, SELFPAY | PROVIDERS: PCP Family Medicine; Visit Provider Family Medicine | DX: E11.42 Type 2 diabetes mellitus with diabetic polyneuropathy (principal) | CPT/HCPCS: 80048; 83036; 85610 ==

== ENCOUNTER 2024-11-15 16:05 | Emergency (ER) | payer BC, MEDICAID, SELFPAY ==
[2024-11-15 16:31] VITALS: BP 155/118; PULSE 110; RESP 16; TEMP 36.9; O2SAT 98; BMI 44.3
--- NOTE | 2024-11-15 16:42 | XRR_ITS ---
PROCEDURE INFORMATION: Exam: XR Left Finger(s) Exam date and time: 11/15/2024 4:57 PM Age: 49 years old Clinical indication: Injury or trauma; Finger; Left; Lt thumb crushing injury TECHNIQUE: Imaging protocol: Radiologic exam of the left fingers. Views: Minimum 2 views. COMPARISON: No relevant prior studies available. FINDINGS: Bones/joints: At least 2 osseous fragments are present distally to the distal 1st phalanx. Remaining osseous structures appear intact. Soft tissues: Discontinuity of soft tissues within distal 1st digit . XR/XR finger LT min 2V [id number] IMPRESSION: 1. Severe disruption of soft tissues of the 1st phalanx. 2. Free osseous fragments distal to the distal 1st phalanx, consistent with fracture fragments due to patient's crushing injury. 3. No unexpected radiopaque foreign bodies.
[2024-11-15 17:33] LABS: Basophils % 0.4 %; Eosinophils % 0.3 %; Lymphocytes # 2.2 10^3/uL (0.8-4.8); Lymphocytes % 24.8 %; Mean Corpuscular HGB Conc 32.8 g/dL (30-55); Mean Corpuscular Hemoglobin 29.1 pg (27-33); Mean Corpuscular Volume 88.6 fl (82-101); Mean Platelet Volume 10.5 fL (7.4-10.4); Monocytes # 0.5 10^3/uL (0.2-0.9); Monocytes % 5.9 %; Neutrophils # 6.14 10^3/uL (1.8-7.7); Neutrophils % 68.4 %; Nucleated Red Blood Cells % 0 %; Platelet Count 263 10^3/cmm (157-399); Red Blood Count 5.19 10^6/uL (3.85-5.65); Red Cell Distribution Width 12.9 % (12.1-15.1); White Blood Count 8.99 10^3/uL (3.29-11.43)
--- NOTE | 2024-11-15 17:43 | ED_ITS ---
Documented by User: UDAY Bay 11/15/24 20:03 HPI - Extremity Problem 2 General: Chief complaint: Extremity Injury, Upper Stated complaint: lt thumb crushing inj Time Seen by Provider: 11/15/24 16:42 Source: patient Mode of arrival: ambulatory Limitations: no limitations History of Present Illness: Patient is a 49-year-old male who is presenting to the ED due to injury to his left thumb that occurred this afternoon at 1500. States that he ultimately is unsure what happened, believes that the thumb got smashed by a railroad tie. Tetanus not up-to-date, though he denies multiple times that he wants a tetanus. Arrives with bleeding controlled, though he is on warfarin. He also denies pain medication at this time. He can still feel the finger, stating that it is still painful but it has eased up a bit. He has no other symptoms to report at this time. Vitals show mild elevation in blood pressure and heart rate, this is likely secondary to the pain. MD Complaint: extremity pain Onset (ago): hour(s) Pain Consistency: constant Location: left and upper extremity (Thumb) Quality: sharp Relieving factors: nothing Exacerbating factors: range of motion and palpation Associated symptoms: Deny chest pain, fever(s) or rash Context: other (Potential crush injury) Related Data Home Medications ?Medication ?Instructions ?Recorded ?Confirmed acetaminophen 500 mg tablet 1,000 mg PO PRN 12/02/19 0 10/17/24 (Tylenol Extra Strength) Previous Rx's ?Medication ?Instructions ?Recorded losartan 100 mg tablet See Rx Instructions .Route 0 02/19/24 .COMPLEX #30 tabs mupirocin 2 % topical ointment 1 applic topical BID #1 5 grams 02/19/24 omeprazole 20 mg capsule,delayed See Rx Instructions . Route 02/19/24 release .COMPLEX #30 caps spironolactone 25 mg tablet See Rx Instructions .Route 02/19/24 .COMPLEX #60 tabs metoprolol tartrate 50 mg tablet See Rx Instructions . Route 07/17/24 .COMPLEX #30 tabs INR in-home blood monitor #1 ea 07/18/24 INR home monitoring device #1 ea 07/29/24 warfarin 5 mg tablet See Rx Instructions .Route 0 10/19/24 .COMPLEX #120 tabs doxycycline hyclate 100 mg tablet 100 mg PO BID 10 day s #20 tabs 11/15/24 Allergies Allergy/AdvReac Type Severity Reaction Status Date / Time No Known Allergies Allergy Verified 10/17/24 15:49 Review of Systems 2 General: Reports: 10 or more systems reviewed and unremarkable except in HPI and below Const: Denies: fever(s) or chills Card: Denies: chest pain Resp: Denies: dyspnea or productive cough GI: Denies: abdominal pain, nausea, vomiting or diarrhea : Denies: flank pain Musc: Reports: extremity pain (Left thumb pain) and limited range of motion; Denies: neck pain, back pain, joint pain, joint swelling, joint redness, joint warmth or muscle weakness Skin/Breast: Reports: new lesions (Laceration to left thumb); Denies: rash Neuro: Denies: headache(s), numbness in extremities or weakness in extremities PFSH ED 2 PFSH: Medical History Diabetic neuropathy BMI 45.0-49.9, adult Pulmonary embolism Essential hypertension DVT (deep venous thrombosis) Surgical History No pertinent past surgical history Family History Grandfather Diabetes Hypertension Prostate cancer Grandmother Diabetes Hypertension Cancer Mother Diabetes Hypertension Uterine cancer Father Lymphoma Other CAD (coronary artery disease) Social History Smoking and tobacco/nicotine status: never used tobacco/nicotine Second hand smoke exposure: No Alcohol intake: never Substance/Drug Use: never Physical Exam 2 Const: COMMON NORMALS: no acute distress, patient oriented x3, no limitations, healthy appearing, alert and well nourished HENMT: COMMON NORMALS: normocephalic and atraumatic HEAD & SCALP: n ormocephalic and atraumatic Neck/C-Spine: COMMON NORMALS: full ROM, supple and no meningeal signs Resp: COMMON NORMALS: normal respiratory effort, No use of accessory muscles and clear to auscultation bilaterally AUSCULTATION: clear to auscultation bilaterally Cardio: COMMON NORMALS: regular rate and regular rhythm RATE: regular rate RHYTHM: regular rhythm Extremity: NARRATIVE EXTREMITY EXAM: There is retained range of motion of the left thumb, see skin exam. Normal hand examination. Neuro: COMMON NORMALS: patient oriented x3, moves all extremities, no focal motor deficits and no sensory deficits noted SENSORIUM/ORIENTATION: Yes alert MENINGEAL SIGNS: Yes no meningeal signs Skin: NARRATIVE SKIN EXAM: There is complex 5 to 6 cm laceration of the left thumb that does involve the nailbed, with obvious palmar deformity. Does not appear to be any open compounding fractures. No active bleeding at this time. No obvious visible contamination or foreign bodies present. Procedures Laceration Laceration 1: Site: hand (Thumb) Side (If applicable): left Size (cm): 6 Description: irregular Depth: simple, single layer Pre-repair: wound explored, irrigated extensively and deep structures intact Skin layer closed with: nylon Size (cm): 4-0 Number of sutures: 9 Technique: simple, interrupted Nerve Block Nerve Block 1: Local Anesthetic: lidocaine 1% Amount of anesthesia used (mL): 10 Side: left Nerve Blocks: digital Procedure Successful: Yes Patient Tolerated Procedure: well Complications: none Course 2 Vital Signs: Vital signs: Vital Signs Temperature 98.4 F 11/15/24 16:31 Pulse Rate 110 H 11/15/24 16:31 Respiratory Rate 16 11/15/24 16:31 Blood Pressure 170/112 11/15/24 19:03 Pulse Oximetry 93 11/15/24 19:03 Oxygen Delivery Me thod Room Air 11/15/24 16:31 MDM - Extremity (Nontraumatic) Medical Decision Making This person had presented with a complex laceration to left thumb involving the nail. Was a crush type injury, however seem to still have intact neurovascular functioning on exam. There was no active bleeding on removal, though he is on warfarin. On x-ray there was evidence of a distal tuft fracture. Basic labs were obtained, does show that his PT/INR is within therapeutic range rest of his labs unremarkable. Despite informing him of the risks of refusing, he denied tetanus shot multiple times. Also denied pain medications. With repairing the wound, loose approximation with 4-0 sutures, was able to reapproximate the thumb and a post procedure x-ray did show improved alignment of the previous tuft fracture. The nail was removed and sutures placed to the nailbed, again with loose approximation. I had asked supervising ED doc, Dr. Varela, to evaluate the wound postprocedure and had stated it appeared okay. I had also gotten a hold of the patient's primary care provider, who will see the patient next week to make sure that this wound is healing okay and eventually for suture removal. Due to the underlying small tuft fracture, was placed in a thumb splint and wrapped, with hemostasis being obtained postprocedure. A dose of Rocephin was given through an IV, and he will be started on antibiotics prophylactically. Prior to the procedure the wound was soaked for 30 minutes Betadine/normal saline. After this was thoroughly irrigated and there was no sign of foreign body or contamination. Being that this was a crush type injury, I did inform the patient to monitor his condition closely for any signs of a compartment syndrome. A referral to orthopedics is also placed at this time for reevaluation. Patient verbalized understanding to the return precautions. Lab Data 11/15/24 17:27 11/15/24 17:27 Radiology Impressions Finger X-Ray 11/15/24 18:39 IMPRESSION: Improved osseous and soft tissue alignment in comparison to prior. No new fractures identified. Laboratory Results WBC 8.99 10^3/uL (3.29-11.43) 11/15/24 17: RBC 5.19 10^6/uL (3.85-5.65) 11/15/24 17: Hgb 15.10 g/dL (11.27-16.99) 11/15/24: Hct 46.0 % (37-53) 11/15/24 17: MCV 88.6 fl (82-101) 11/15/24 17: MCH 29.1 pg (27-33) 11/15/24 17: MCHC 32.8 g/dL (30-55) 11/15/24 17: RDW 12.9 % (12.1-15.1) 11/15/24 17: Plt Count 263 10^3/cmm (157-399) 11/15/24 17: MPV 10.5 fL (7.4-10.4) H 11/15/24 17: Neut % (Auto) 68.4 % 11/15/24 17: Lymph % (Auto) 24.8 % 11/15/24 17: [place] % (Auto) 5.9 % 11/15/24 17: Eos % (Auto) 0.3 % 11/15/24 17: Baso % (Auto) 0.4 % 11/15/24 17: Neut # (Auto) 6.14 10^3/uL (1.8-7.7) 11/15/24 17: Lymph # (Auto) 2.2 10^3/uL (0.8-4.8) 11/15/24 17: [place] # (Auto) 0.5 10^3/uL (0.2-0.9) 11/15/24 17: Eos # (Auto) 0.0 10^3/uL (0.0-0.8) 11/15/24: Baso # (Auto) 0.0 10^3/uL (0.0-0.1) 11/15/24: Nucleated RBC % (auto) 0 % 11/15/24: Nucleated RBCs # 0.0 /100WBC 11/15/24 17: PT 25.90 SECONDS (12.1-14.9) H 11/15/24 17: INR 2.22 (0.8-1.2) H 11/15/24 17: APTT 36.0 SECONDS (23.9-36.7) 11/15/24 17: Sodium 136 mmol/L (136-145) 11/15/24 17: Potassium 4.1 mmol/L (3.5-5.1) 11/15/24 17: Chloride 102 mmol/L (98-107) 11/15/24 17: Carbon Dioxide 20 mmol/L (22-29) L 11/15/24 17: Anion Gap 18.1 (5-19) 11/15/24 17: BUN 29 mg/dL (6-20) H 11/15/24 17: Creatinine 1.2 mg/dL (0.7-1.2) 11/15/24 17: GFR Calculation 63.8 mL/min (90-130) L 11/15/24 17: Glucose 127 mg/dL (65-115) H 11/15/24 17:27 Calculated Osmolality 289 mOsm/kg (285-295) 11/15/24 17:27 Calcium 9.7 mg/dL (8.5-10.5) 11/15/24 17:27 Total Bilirubin 0.6 mg/dL (0.15-1.2) 11/15/24 17:27 AST 38 U/L (0-40) 11/15/24 17:27 ALT 27 U/L (0-41) 11/15/24 17:27 Alkaline Phosphatase 64 U/L (40-130) 11/15/24 17:27 Total Protein 7.7 g/dL (6.6-8.7) 11/15/24 17:27 Albumin 4.3 g/dL (3.5-5.2) 11/15/24 17:27 Globulin 3.4 g/dL (1.3-4.6) 11/15/24 17:27 All radiology interpretation(s) finalized by discharge Discharge Plan Discharge Patient Disposition: Home Clinical Impression: Closed fracture of tuft of distal phalanx of finger Laceration of left thumb Qualifiers: Encounter type: initial encounter Damage to nail status: with damage Foreign body presence: without foreign body Qualified Code(s): S61.112A - Laceration without foreign body of left thumb with damage to nail, initial encounter Condition: Stable Prescriptions: New doxycycline hyclate 100 mg tablet 100 mg PO BID 10 Days Qty: 20 0RF No Action (DME) INR in-home blood monitor See Rx Instructions .Route .MEDSUPPLY Qty: 1 0RF Rx Instructions: As directed (DME) INR home monitoring device See Rx Instructions .Route .MEDSUPPLY Qty: 1 0RF Rx Instructions: As directed mupirocin 2 % ointment 1 applic topical BID Qty: 15 0RF losartan 100 mg tablet See Rx Instructions .ROUTE .COMPLEX Qty: 30 5RF Dose Instruction: TAKE 1 TABLET BY MOUTH EVERY DAY Rx Instructions: TAKE 1 TABLET BY MOUTH EVERY DAY omeprazole 20 mg capsule,delayed release(DR/EC) See Rx Instructions .ROUTE .COMPLEX Qty: 30 5RF Dose Instruction: TAKE ONE CAPSULE BY MOUTH DAILY Rx Instructions: TAKE ONE CAPSULE BY MOUTH DAILY spironolactone 25 mg tablet See Rx Instructions .ROUTE .COMPLEX Qty: 60 5RF Dose Instruction: TAKE 1 TABLET BY MOUTH TWICE DAILY Rx Instructions: TAKE 1 TABLET BY MOUTH TWICE DAILY metoprolol tartrate 50 mg tablet See Rx Instructions .ROUTE .COMPLEX Qty: 30 5RF Dose Instruction: TAKE 1 TABLET BY MOUTH TWICE DAILY Rx Instructions: TAKE 1 TABLET BY MOUTH TWICE DAILY warfarin 5 mg tablet See Rx Instructions .ROUTE .COMPLEX Qty: 120 5RF Dose Instruction: TAKE 2 TABLETS BY MOUTH ON MONDAY, MONDAY, MONDAY AND MONDAY. TAKE ONE TABLET DAILY ON MONDAY, MONDAY AND MONDAY Rx Instructions: TAKE 2 TABLETS BY MOUTH ON Monday through Monday, Take One tablet Monday, Monday Tylenol Extra Strength 500 mg Tablet 1,000 mg PO PRN Rx Instructions: pt states he last took last week Discharge Orders: Discharge ED (Routine); Ordered 11/15/24 Ordered By: Herberth Yo Referrals: Naresh Leone MD [Primary Care Provider] - Patient Instructions: Finger Laceration (ED) Activity Restrictions/Additional Instructions: Please follow-up with orthopedics as we discussed. Bandage on for 48 hours, when changing make sure that there is no new bleeding. Please follow-up with your primary care for removal of the sutures as we discussed. Tylenol for pain. If you have any severe increase of pain, red streaking, or other signs of compartment syndrome that we discussed please return to the ED immediately for reevaluation. Keep the splint on until follow-up with orthopedics. When you do clean, do not soak in water, dab with warm soap and water and then dab dry afterwards, covering. Work note is provided, avoid use of the left hand. Stand Alone Forms: Work/School Release Print Language: Algerian Coding Level of Care Code ED Facility Rehab Director for [facility] Fwd Documented by User: Ulises Burnham DO 11/18/24 06:46 HPI - Extremity Problem 2 General: Chief complaint: Extremity Injury, Upper Stated complaint: lt thumb crushing inj Time Seen by Provider: 11/15/24 16:42 Related Data Home Medications ?Medication ?Instructions ?Recorded ?Confirmed acetaminophen 500 mg tablet 1,000 mg PO PRN 12/02/19 0 10/17/24 (Tylenol Extra Strength) Previous Rx's ?Medication ?Instructions ?Recorded losartan 100 mg tablet See Rx Instructions .Route 0 02/19/24 .COMPLEX #30 tabs mupirocin 2 % topical ointment 1 applic topical BID #1 5 grams 02/19/24 omeprazole 20 mg capsule,delayed See Rx Instructions . Route 02/19/24 release .COMPLEX #30 caps spironolactone 25 mg tablet See Rx Instructions .Route 02/19/24 .COMPLEX #60 tabs metoprolol tartrate 50 mg tablet See Rx Instructions . Route 07/17/24 .COMPLEX #30 tabs INR in-home blood monitor #1 ea 07/18/24 INR home monitoring device #1 ea 07/29/24 warfarin 5 mg tablet See Rx Instructions .Route 0 10/19/24 .COMPLEX #120 tabs doxycycline hyclate 100 mg tablet 100 mg PO BID 10 day s #20 tabs 11/15/24 Allergies Allergy/AdvReac Type Severity Reaction Status Date / Time No Known Allergies Allergy Verified 10/17/24 15:49 PFSH ED 2 PFSH: Medical History Diabetic neuropathy BMI 45.0-49.9, adult Pulmonary embolism Essential hypertension DVT (deep venous thrombosis) Surgical History No pertinent past surgical history Family History Grandfather Diabetes Hypertension Prostate cancer Grandmother Diabetes Hypertension Cancer Mother Diabetes Hypertension Uterine cancer Father Lymphoma Other CAD (coronary artery disease) Social History Smoking and tobacco/nicotine status: never used tobacco/nicotine Second hand smoke exposure: No Alcohol intake: never Substance/Drug Use: never Course 2 Vital Signs: Vital signs: Vital Signs Temperature 98.4 F 11/15/24 16:31 Pulse Rate 110 H 11/15/24 16:31 Respiratory Rate 16 11/15/24 16:31 Blood Pressure 170/112 11/15/24 19:03 Pulse Oximetry 93 11/15/24 19:03 Oxygen Delivery Me thod Room Air 11/15/24 16:31 MDM - Extremity (Nontraumatic) Medical Decision Making This person had presented with a complex laceration to left thumb involving the nail. Was a crush type injury, however seem to still have intact neurovascular functioning on exam. There was no active bleeding on removal, though he is on warfarin. On x-ray there was evidence of a distal tuft fracture. Basic labs were obtained, does show that his PT/INR is within therapeutic range rest of his labs unremarkable. Despite informing him of the risks of refusing, he denied tetanus shot multiple times. Also denied pain medications. With repairing the wound, loose approximation with 4-0 sutures, was able to reapproximate the thumb and a post procedure x-ray did show improved alignment of the previous tuft fracture. The nail was removed and sutures placed to the nailbed, again with loose approximation. I had asked supervising ED doc, Dr. Varela, to evaluate the wound postprocedure and had stated it appeared okay. I had also gotten a hold of the patient's primary care provider, who will see the patient next week to make sure that this wound is healing okay and eventually for suture removal. Due to the underlying small tuft fracture, was placed in a thumb splint and wrapped, with hemostasis being obtained postprocedure. A dose of Rocephin was given through an IV, and he will be started on antibiotics prophylactically. Prior to the procedure the wound was soaked for 30 minutes Betadine/normal saline. After this was thoroughly irrigated and there was no sign of foreign body or contamination. Being that this was a crush type injury, I did inform the patient to monitor his condition closely for any signs of a compartment syndrome. A referral to orthopedics is also placed at this time for reevaluation. Patient verbalized understanding to the return precautions. Chart reviewed Lab Data 11/15/24 17:27 11/15/24 17:27 Radiology Impressions Finger X-Ray 11/15/24 18:39 IMPRESSION: Improved osseous and soft tissue alignment in comparison to prior. No new fractures identified. Laboratory Results WBC 8.99 10^3/uL (3.29-11.43) 11/15/24 17:27 RBC 5.19 10^6/uL (3.85-5.65) 11/15/24 17: Hgb 15.10 g/dL (11.27-16.99) 11/15/24 17: Hct 46.0 % (37-53) 11/15/24 17: MCV 88.6 fl (82-101) 11/15/24 17: MCH 29.1 pg (27-33) 11/15/24: MCHC 32.8 g/dL (30-55) 11/15/24 17: RDW 12.9 % (12.1-15.1) 11/15/24: Plt Count 263 10^3/cmm (157-399) 11/15/24: MPV 10.5 fL (7.4-10.4) H 11/15/24: Neut % (Auto) 68.4 % 11/15/24: Lymph % (Auto) 24.8 % 11/15/24: [place] % (Auto) 5.9 % 11/15/24: Eos % (Auto) 0.3 % 11/15/24: Baso % (Auto) 0.4 % 11/15/24: Neut # (Auto) 6.14 10^3/uL (1.8-7.7) 11/15/24: Lymph # (Auto) 2.2 10^3/uL (0.8-4.8) 11/15/24: [place] # (Auto) 0.5 10^3/uL (0.2-0.9) 11/15/24: Eos # (Auto) 0.0 10^3/uL (0.0-0.8) 11/15/24: Baso # (Auto) 0.0 10^3/uL (0.0-0.1) 11/15/24: Nucleated RBC % (auto) 0 % 11/15/24: Nucleated RBCs # 0.0 /100WBC 11/15/24: PT 25.90 SECONDS (12.1-14.9) H 11/15/24: INR 2.22 (0.8-1.2) H 03/21/25 17:27 APTT 36.0 SECONDS (23.9-36.7) 11/15/24 17:27 Sodium 136 mmol/L (136-145) 11/15/24 17:27 Potassium 4.1 mmol/L (3.5-5.1) 11/15/24 17:27 Chloride 102 mmol/L (98-107) 11/15/24 17:27 Carbon Dioxide 20 mmol/L (22-29) L 11/15/24 17:27 Anion Gap 18.1 (5-19) 11/15/24 17:27 BUN 29 mg/dL (6-20) H 11/15/24 17:27 Creatinine 1.2 mg/dL (0.7-1.2) 11/15/24 17:27 GFR Calculation 63.8 mL/min (90-130) L 11/15/24 17:27 Glucose 127 mg/dL (65-115) H 11/15/24 17:27 Calculated Osmolality 289 mOsm/kg (285-295) 11/15/24 17:27 Calcium 9.7 mg/dL (8.5-10.5) 11/15/24 17:27 Total Bilirubin 0.6 mg/dL (0.15-1.2) 11/15/24 17:27 AST 38 U/L (0-40) 11/15/24 17:27 ALT 27 U/L (0-41) 11/15/24 17:27 Alkaline Phosphatase 64 U/L (40-130) 11/15/24 17:27 Total Protein 7.7 g/dL (6.6-8.7) 11/15/24 17:27 Albumin 4.3 g/dL (3.5-5.2) 11/15/24 17:27 Globulin 3.4 g/dL (1.3-4.6) 11/15/24 17:27 Discharge Plan Discharge Patient Disposition: Home Clinical Impression: Closed fracture of tuft of distal phalanx of finger Laceration of left thumb Qualifiers: Encounter type: initial encounter Damage to nail status: with damage Foreign body presence: without foreign body Qualified Code(s): S61.112A - Laceration without foreign body of left thumb with damage to nail, initial encounter Condition: Stable Prescriptions: New doxycycline hyclate 100 mg tablet 100 mg PO BID 10 Days Qty: 20 0RF No Action (DME) INR in-home blood monitor See Rx Instructions .Route .MEDSUPPLY Qty: 1 0RF Rx Instructions: As directed (DME) INR home monitoring device See Rx Instructions .Route .MEDSUPPLY Qty: 1 0RF Rx Instructions: As directed mupirocin 2 % ointment 1 applic topical BID Qty: 15 0RF losartan 100 mg tablet See Rx Instructions .ROUTE .COMPLEX Qty: 30 5RF Dose Instruction: TAKE 1 TABLET BY MOUTH EVERY DAY Rx Instructions: TAKE 1 TABLET BY MOUTH EVERY DAY omeprazole 20 mg capsule,delayed release(DR/EC) See Rx Instructions .ROUTE .COMPLEX Qty: 30 5RF Dose Instruction: TAKE ONE CAPSULE BY MOUTH DAILY Rx Instructions: TAKE ONE CAPSULE BY MOUTH DAILY spironolactone 25 mg tablet See Rx Instructions .ROUTE .COMPLEX Qty: 60 5RF Dose Instruction: TAKE 1 TABLET BY MOUTH TWICE DAILY Rx Instructions: TAKE 1 TABLET BY MOUTH TWICE DAILY metoprolol tartrate 50 mg tablet See Rx Instructions .ROUTE .COMPLEX Qty: 30 5RF Dose Instruction: TAKE 1 TABLET BY MOUTH TWICE DAILY Rx Instructions: TAKE 1 TABLET BY MOUTH TWICE DAILY warfarin 5 mg tablet See Rx Instructions .ROUTE .COMPLEX Qty: 120 5RF Dose Instruction: TAKE 2 TABLETS BY MOUTH ON MONDAY, MONDAY, MONDAY AND MONDAY. TAKE ONE TABLET DAILY ON MONDAY, MONDAY AND MONDAY Rx Instructions: TAKE 2 TABLETS BY MOUTH ON Monday through Monday, Take One tablet Monday, Monday Tylenol Extra Strength 500 mg Tablet 1,000 mg PO PRN Rx Instructions: pt states he last took last week Discharge Orders: Discharge ED (Routine); Ordered 11/15/24 Ordered By: Herberth Yo Referrals: Naresh Leone MD [Primary Care Provider] - Patient Instructions: Finger Laceration (ED) Activity Restrictions/Additional Instructions: Please follow-up with orthopedics as we discussed. Bandage on for 48 hours, when changing make sure that there is no new bleeding. Please follow-up with your primary care for removal of the sutures as we discussed. Tylenol for pain. If you have any severe increase of pain, red streaking, or other signs of compartment syndrome that we discussed please return to the ED immediately for reevaluation. Keep the splint on until follow-up with orthopedics. When you do clean, do not soak in water, dab with warm soap and water and then dab dry afterwards, covering. Work note is provided, avoid use of the left hand. Stand Alone Forms: Work/School Release Print Language: Algerian Coding Level of Care Code ED Facility Rehab Director for Hema Mendoza
[2024-11-15] MEDS: cefTRIAXone 1,000 mg SDV 1000 MG IVP (17:44)
[2024-11-15] MEDS: doxycycline 100 mg Tablet PO (17:44)
[2024-11-15 17:45] LABS: INR 2.22 (0.8-1.2)
[2024-11-15 17:51] LABS: Alanine Aminotransferase 27 U/L (0-41); Albumin Level 4.3 g/dL (3.5-5.2); Alkaline Phosphatase 64 U/L (40-130); Anion Gap 18.1 (5-19); Aspartate Amino Transferase 38 U/L (0-40); Blood Urea Nitrogen 29 mg/dL (6-20); Calcium 9.7 mg/dL (8.5-10.5); Carbon Dioxide 20 mmol/L (22-29); Chloride 102 mmol/L (98-107); Creatinine Clr Calc Pharmacy 102.8692; Globulin 3.4 g/dL (1.3-4.6); Glomerular Filtration Rate 63.8 mL/min (90-130); Glucose 127 mg/dL (65-115); Osmolality Calculated 289 mOsm/kg (285-295); Potassium 4.1 mmol/L (3.5-5.1); Sodium 136 mmol/L (136-145); Total Bilirubin 0.6 mg/dL (0.15-1.2); Total Protein 7.7 g/dL (6.6-8.7)
[2024-11-15 17:55] VITALS: BP 186/112; O2SAT 92
[2024-11-15 18:01] VITALS: BP 186/112; O2SAT 94
[2024-11-15] MEDS: lidocaine 2% INJ 20 mL INJECTION (18:20)
--- NOTE | 2024-11-15 18:39 | XRR_ITS ---
PROCEDURE INFORMATION: Exam: XR Left Finger(s) Exam date and time: 11/15/2024 6:42 PM Age: 49 years old Clinical indication: Injury or trauma; Other: Crushing; Finger; Left; Thumb; Additional info: Post procedure XR TECHNIQUE: Imaging protocol: Radiologic exam of the left fingers. Views: Minimum 2 views. COMPARISON: CR (UP EXM, ) 11/15/2024 4:57 PM FINDINGS: Bones/joints: Improved osseous anatomic alignment. No new acute displaced fractures identified. Soft tissues: Improved anatomic alignment of previously seen severe soft tissue disruption within 1st phalanx. XR/XR finger LT min 2V [id number] IMPRESSION: Improved osseous and soft tissue alignment in comparison to prior. No new fractures identified.
[2024-11-15 19:03] VITALS: BP 170/112; O2SAT 93
--- NOTE | 2024-11-19 08:37 | DCPLANNER ---
Message sent to Ortho for follow up- Patient is a 49-year-old male who is presenting to the ED due to injury to his left thumb that occurred this afternoon at 1500. States that he ultimately is unsure what happened, believes that the thumb got smashed by a railroad tie. Tetanus not up-to-date, though he denies multiple times that he wants a tetanus. Arrives with bleeding controlled, though he is on warfarin. He also denies pain medication at this time. He can still feel the finger, stating that it is still painful but it has eased up a bit. He has no other symptoms to report at this time. Vitals show mild elevation in blood pressure and heart rate, this is likely secondary to the pain.
--- NOTE | 2024-11-19 08:37 | DCPLANNER ---
Message sent to Ortho for follow up
== END 2024-11-15 20:01 | disposition home or self-care (01) ==
PROVIDERS: Emergency Provider Physician Assistant; PCP Family Medicine
DX: S61.112A Laceration without foreign body of left thumb with damage to nail, initial encounter (principal); S62.522A Displaced fracture of distal phalanx of left thumb, initial encounter for closed fracture; X58.XXXA Exposure to other specified factors, initial encounter; I10 Essential (primary) hypertension
CPT/HCPCS: 12002; 36415; 73140; 80053; 85025; 85610; 85730; 96374; 99284; J0696; J9999

== ENCOUNTER 2024-11-22 09:25 | Outpatient (CLI) | payer OTHER, SELFPAY ==
[2024-11-22 10:00] LABS: Basophils % 0.5 %; Eosinophils % 0.4 %; Hematocrit 47.3 % (37-53); Lymphocytes # 3.1 10^3/uL (0.8-4.8); Lymphocytes % 37.7 %; Mean Corpuscular HGB Conc 32.1 g/dL (30-55); Mean Corpuscular Hemoglobin 29.1 pg (27-33); Mean Corpuscular Volume 90.4 fl (82-101); Mean Platelet Volume 10.9 fL (7.4-10.4); Monocytes # 0.4 10^3/uL (0.2-0.9); Monocytes % 4.7 %; Neutrophils # 4.65 10^3/uL (1.8-7.7); Neutrophils % 56.5 %; Nucleated Red Blood Cells % 0 %; Platelet Count 219 10^3/cmm (157-399); Red Blood Count 5.23 10^6/uL (3.85-5.65); Red Cell Distribution Width 13.1 % (12.1-15.1); White Blood Count 8.24 10^3/uL (3.29-11.43)
[2024-11-22 10:19] LABS: Alanine Aminotransferase 21 U/L (0-41); Alkaline Phosphatase 59 U/L (40-130); Anion Gap 14.2 (5-19); Aspartate Amino Transferase 21 U/L (0-40); Blood Urea Nitrogen 19 mg/dL (6-20); Calcium 8.9 mg/dL (8.5-10.5); Carbon Dioxide 26 mmol/L (22-29); Chloride 104 mmol/L (98-107); Globulin 3.2 g/dL (1.3-4.6); Glomerular Filtration Rate 78.8 mL/min (90-130); Glucose 160 mg/dL (65-115); Osmolality Calculated 296 mOsm/kg (285-295); Potassium 4.2 mmol/L (3.5-5.1); Sodium 140 mmol/L (136-145); Total Bilirubin 0.4 mg/dL (0.15-1.2); Total Protein 7.2 g/dL (6.6-8.7)
== END 2024-11-22 09:26 | disposition home or self-care (01) ==
PROVIDERS: PCP Family Medicine; Visit Provider Plastic Surgery Surgery of the Hand
DX: Z01.812 Encounter for preprocedural laboratory examination (principal)
CPT/HCPCS: 36415; 80053; 85025

== ENCOUNTER → 2025-01-22 15:10 | Outpatient (BNVA) | payer BC, MEDICAID, SELFPAY | PROVIDERS: PCP Family Medicine; Visit Provider Family Medicine | DX: E11.8 Type 2 diabetes mellitus with unspecified complications (principal); E11.65 Type 2 diabetes mellitus with hyperglycemia; I82.532 Chronic embolism and thrombosis of left popliteal vein | CPT/HCPCS: 80053; 83036; 85025; 85610 ==

== ENCOUNTER 2025-02-15 14:33 | Emergency (ER) | payer BC, MEDICAID, SELFPAY ==
[2025-02-15 14:39] VITALS: BP 161/97; PULSE 94; RESP 18; TEMP 36.7; O2SAT 98; BMI 40.1
--- NOTE | 2025-02-15 15:09 | USR_ITS ---
PROCEDURE INFORMATION: Exam: US Duplex Left Lower Extremity Veins, Limited Exam date and time: 02/15/2025 4:09 PM Age: 50 years old Clinical indication: Pain; Leg, upper and leg, lower; Left; Additional info: Pain swelling TECHNIQUE: Imaging protocol: Real-time duplex ultrasound of the left extremity with 2-D rosen scale, color Doppler flow and spectral waveform analysis including responses to compression and other maneuvers (when performed) with image documentation. Limited exam focused on the left lower extremity veins. COMPARISON: No relevant prior studies available. FINDINGS: Left deep veins: There is echogenic thrombus noted within the proximal mid and distal femoral vein with partial compressibility and mild Doppler waveform. The common femoral, proximal profunda femoral and popliteal veins are patent without thrombus. Both peroneal and posterior tibial veins are compressible with flow noted. Soft tissues: Unremarkable. US/[place] [id number] IMPRESSION: Probable chronic partially occlusive DVT of the proximal, mid and distal femoral vein.
--- NOTE | 2025-02-15 15:18 | W.ED.EXTPRO ---
HPI - Extremity Problem General: Chief complaint: Extremity Problem,Nontraumatic Stated complaint: possible DVTs sent by [facility] Time Seen by Provider: 02/15/25 14:43 History of Present Illness: 50-year-old male presents emergency room with complaint of swelling in the left leg. He was sent by his primary care provider. He is has a history of DVTs. 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 His last INR check was 3 weeks ago at which time he was 2.1. No chest pain no shortness of breath Associated symptoms: Deny chest pain, fever(s) or rash Related Data Home Medications ?Medication ?Instructions ?Recorded ?Confirmed acetaminophen 500 mg tablet 1,000 mg PO Q6H PRN Pain 12/02/19 02/15/25 (Tylenol Extra Strength) metoprolol tartrate 50 mg tablet 50 mg PO BID 02/15/25 02/15/25 mupirocin 2 % topical ointment 1 applic topical BID PRN Skin 02/15/25 02/15/25 Irritation Previous Rx's ?Medication ?Instructions ?Recorded INR in-home blood monitor #1 ea 07/18/24 INR home monitoring device #1 ea 07/29/24 losartan 100 mg tablet 100 mg PO DAILY #90 tabs 01/22/25 omeprazole 20 mg capsule,delayed 20 mg PO DAILY PRN acid reflux #90 01/22/25 release caps spironolactone 25 mg tablet 25 mg PO BID #90 tabs 01/22/25 warfarin 5 mg tablet See Rx Instructions .Route 01/23/25 .COMPLEX #120 tabs Allergies Allergy/AdvReac Type Severity Reaction Status Date / Time aspirin Allergy Mild Unknown Verified 02/15/25 14:45 NSAIDS (Non-Steroidal Allergy Unknown Verified 02/15/25 14:45 Anti-Inflamma oxycodone Allergy ADR-Chest Verified 02/15/25 14:45 Pain Review of Systems Const: Denies: fever(s) or chills Card: Denies: chest pain Resp: Denies: dyspnea GI: Denies: abdominal pain : Denies: dysuria, urinary frequency or urinary urgency Musc: Denies: neck pain or back pain Skin/Breast: Denies: rash PFSH ED PFSH: Medical History Diabetic neuropathy BMI 45.0-49.9, adult Pulmonary embolism Essential hypertension DVT (deep venous thrombosis) Surgical History No pertinent past surgical history Family History Grandfather Diabetes Hypertension Prostate cancer Grandmother Diabetes Hypertension Cancer Mother Diabetes Hypertension Uterine cancer Father Lymphoma Other CAD (coronary artery disease) Social History Smoking and tobacco/nicotine status: never used tobacco/nicotine Second hand smoke exposure: No Alcohol intake: never Substance/Drug Use: never Physical Exam Const: GENERAL APPEARANCE: cooperative ORIENTATION/CONSCIOUSNESS: Yes awake, Yes oriented to person, Yes oriented to place and Yes oriented to time HENMT: COMMON NORMALS: normocephalic, atraumatic and hearing grossly normal bilaterally HEAD & SCALP: normocephalic and atraumatic Resp: COMMON NORMALS: normal respiratory effort, No retractions, No use of accessory muscles and clear to auscultation bilaterally AUSCULTATION: clear to auscultation bilaterally Cardio: COMMON NORMALS: regular rate, regular rhythm and No murmurs present (Cardio) RATE: regular rate RHYTHM: regular rhythm GI: COMMON NORMALS: Soft to palpation and No hepatosplenomegaly present AUSCULTATION: Yes normoactive bowel sounds PALPATION: Yes Soft to palpation, No Tenderness to palpation present (GI), No Guarding due to palpation present (GI) and Yes No hepatosplenomegaly present Extremity: COMMON NORMALS: normal to inspection, capillary refill normal and no calf tenderness OTHER: 2+ edema left lower extremity significant bruising in various stages of reabsorption Neuro: SENSORIUM/ORIENTATION: Yes oriented to person, Yes oriented to place and Yes oriented to time Skin: COMMON NORMALS: no rashes or lesions noted GENERAL SKIN EXAM: no rashes or lesions noted Course Vital Signs: Vital signs: Vital Signs Temperature 98.1 F 02/15/25 14:39 Pulse Rate 88 02/15/25 18:26 Respiratory Rate 18 02/15/25 16:00 Blood Pressure 106/96 02/15/25 18:26 Pulse Oximetry 99 02/15/25 18:26 Oxygen Delivery Me thod Room Air 02/15/25 14:39 MDM - Extremity (Nontraumatic) Medical Decision Making Venous duplex shows chronic DVT for which patient is already being treating as therapeutic INR. No further interventions required. Think he is having some edema which is chronic because of the DVT. He has ecchymosis on the thigh from the recent trauma that is adding to it think that the larger cause of his swelling at this point no recommended changes in therapy. Medical Records I reviewed the patient's medical records. Lab Data I reviewed the patient's lab results. 02/15/25 15:26 Radiology Impressions Venous Duplex 02/15/25 15:09 IMPRESSION: Probable chronic partially occlusive DVT of the proximal, mid and distal femoral vein. Laboratory Results WBC 8.06 10^3/uL (3.29-11.43) 02/15/25 15:26 RBC 4.28 10^6/uL (3.85-5.65) 02/15/25 15:26 Hgb 12.90 g/dL (11.27-16.99) 02/15/25 15:26 Hct 40.2 % (37-53) 02/15/25 15:26 MCV 93.9 fl (82-101) 02/15/25 15:26 MCH 30.1 pg (27-33) 02/15/25 15:26 MCHC 32.1 g/dL (30-55) 02/15/25 15:26 RDW 14.4 % (12.1-15.1) 02/15/25 15:26 Plt Count 261 10^3/cmm (157-399) 02/15/25 15:26 MPV 10.4 fL (7.4-10.4) 02/15/25 15:26 Neut % (Auto) 55.6 % 02/15/25 15:26 Lymph % (Auto) 35.2 % 02/15/25 15:26 [place] % (Auto) 7.8 % 02/15/25 15:26 Eos % (Auto) 0.5 % 02/15/25 15:26 Baso % (Auto) 0.5 % 02/15/25 15:26 Neut # (Auto) 4.48 10^3/uL (1.8-7.7) 02/15/25 15:26 Lymph # (Auto) 2.8 10^3/uL (0.8-4.8) 02/15/25 15:26 [place] # (Auto) 0.6 10^3/uL (0.2-0.9) 02/15/25 15:26 Eos # (Auto) 0.0 10^3/uL (0.0-0.8) 02/15/25 15:26 Baso # (Auto) 0.0 10^3/uL (0.0-0.1) 02/15/25 15: Nucleated RBC % (auto) 0 % 02/15/25 15: Nucleated RBCs # 0.0 /100WBC 02/15/25 15: PT 28.80 SECONDS (12.1-14.9) H 02/15/25 15:26 INR 2.54 (0.8-1.2) H 02/15/25 15:26 All radiology interpretation(s) finalized by discharge Discharge Plan Discharge Patient Disposition: Home Clinical Impression: Leg edema, left, Chronic deep vein thrombosis (DVT), On warfarin therapy, Traumatic ecchymosis of thigh Condition: Stable Prescriptions: No Action (DME) INR in-home blood monitor See Rx Instructions .Route .MEDSUPPLY Qty: 1 0RF Rx Instructions: As directed (DME) INR home monitoring device See Rx Instructions .Route .MEDSUPPLY Qty: 1 0RF Rx Instructions: As directed spironolactone 25 mg tablet 25 mg PO BID Qty: 90 1RF omeprazole 20 mg capsule,delayed release(DR/EC) 20 mg PO DAILY PRN (Reason: acid reflux) Qty: 90 1RF losartan 100 mg tablet 100 mg PO DAILY Qty: 90 1RF warfarin 5 mg tablet See Rx Instructions .ROUTE .COMPLEX Qty: 120 5RF Dose Instruction: TAKE 2 TABLETS BY MOUTH ON MONDAY, MONDAY, MONDAY AND MONDAY. TAKE ONE TABLET DAILY ON MONDAY, MONDAY AND MONDAY Rx Instructions: TAKE 2 TABLETS BY MOUTH Monday through Monday, Take One tablet on Monday and Monday. acetaminophen [Tylenol Extra Strength] 500 mg Tablet 1,000 mg PO Q6H PRN (Reason: Pain) metoprolol tartrate 50 mg tablet 50 mg PO BID mupirocin 2 % ointment 1 applic topical BID PRN (Reason: Skin Irritation) Discharge Orders: Discharge ED (Routine); Ordered 02/15/25 Ordered By: Ulises Burnham Referrals: Naresh Leone MD [Primary Care Provider, Family Practice] Discharge Diet: Usual diet Discharge Activity: Increase activity as tolerated Patient Instructions: Opioid Safety, Pain Management Activity Restrictions/Additional Instructions: Thank you for choosing [facility] for your healthcare needs today. It is very important that you follow up as instructed or that you return to the Emergency Department should you have concerns or if your condition changes or worsens in any way. You were seen in the emergency room with swelling and bruising in your leg. The swelling in the leg is likely a result of the bruising from the trauma while you are working. Ultrasound shows chronic DVT in that leg. Your INR is at the high end of therapeutic goal. Elevate leg whenever you possible continue your Coumadin at same dose. Stand Alone Forms: Work/School Release Print Language: Guinean Coding Level of Care Code ED Forensic Psychologist for Hema Mendoza
[2025-02-15 15:30] LABS: Basophils % 0.5 %; Eosinophils % 0.5 %; Hematocrit 40.2 % (37-53); Lymphocytes # 2.8 10^3/uL (0.8-4.8); Lymphocytes % 35.2 %; Mean Corpuscular HGB Conc 32.1 g/dL (30-55); Mean Corpuscular Hemoglobin 30.1 pg (27-33); Mean Corpuscular Volume 93.9 fl (82-101); Mean Platelet Volume 10.4 fL (7.4-10.4); Monocytes # 0.6 10^3/uL (0.2-0.9); Monocytes % 7.8 %; Neutrophils # 4.48 10^3/uL (1.8-7.7); Neutrophils % 55.6 %; Nucleated Red Blood Cells % 0 %; Platelet Count 261 10^3/cmm (157-399); Red Blood Count 4.28 10^6/uL (3.85-5.65); Red Cell Distribution Width 14.4 % (12.1-15.1); White Blood Count 8.06 10^3/uL (3.29-11.43)
[2025-02-15 15:42] LABS: INR 2.54 (0.8-1.2)
[2025-02-15 16:00] VITALS: BP 153/90; PULSE 87; RESP 18; O2SAT 99
[2025-02-15 18:26] VITALS: BP 106/96; PULSE 88; O2SAT 99
== END 2025-02-15 19:31 | disposition home or self-care (01) ==
PROVIDERS: Emergency Provider Family Medicine; PCP Family Medicine
DX: R60.0 Localized edema (principal); I82.5Y2 Chronic embolism and thrombosis of unspecified deep veins of left proximal lower extremity; I82.512 Chronic embolism and thrombosis of left femoral vein; Z79.01 Long term (current) use of anticoagulants; S70.12XA Contusion of left thigh, initial encounter; X58.XXXA Exposure to other specified factors, initial encounter; I10 Essential (primary) hypertension; E11.40 Type 2 diabetes mellitus with diabetic neuropathy, unspecified
CPT/HCPCS: 85025; 85610; 93971; 99284

== ENCOUNTER → 2025-05-21 16:09 | Outpatient (BNVA) | payer BC, SELFPAY | PROVIDERS: PCP Family Medicine; Visit Provider Family Medicine | DX: E11.42 Type 2 diabetes mellitus with diabetic polyneuropathy (principal); I82.402 Acute embolism and thrombosis of unspecified deep veins of left lower extremity | CPT/HCPCS: 80053; 83036; 85610 ==